=== PATIENT | female | born 1965 | race Hispanic/Latino ===

== ENCOUNTER 2018-06-07 12:11 | Outpatient (CLI) | payer BC | END 2018-06-07 12:12 | disposition home or self-care (01) | LOC: BICMAMMO 12:11 | PROVIDERS: ATTEND Obstetrics & Gynecology | DX: Z12.31 Encounter for screening mammogram for malignant neoplasm of breast (principal); Z80.3 Family history of malignant neoplasm of breast | CPT/HCPCS: 77063; 77067 ==

== ENCOUNTER 2019-11-21 10:08 | Outpatient (CLI) | payer BC ==
--- NOTE | 2019-11-21 11:59 | ULT ---
PELVIC SONOGRAM TRANSABDOMINAL AND TRANSVAGINAL IMAGING WITH DUPLEX EVALUATION: HISTORY: Postmenopausal bleeding. FINDINGS: The urinary bladder is unremarkable. Uterus has a heterogeneous echotexture and measures up to 7.5 c m. A lobular 0.9 cm echogenicity along the anterior aspect of the lower uterine segment likely repre sents a partially calcified uterine fibroid. Endometrium is 0.6 cm. NO free fluid. Each ovary has a normal appearance with good color and spectral Doppler flow. IMPRESSION: Mild fibroid involvement of the uterus. POS: [facility]
== END 2019-11-21 10:09 | disposition home or self-care (01) ==
LOC: SCSULT 10:08
PROVIDERS: ATTEND Family Medicine
DX: N95.0 Postmenopausal bleeding (principal); D25.9 Leiomyoma of uterus, unspecified
CPT/HCPCS: 76856

== ENCOUNTER 2020-10-31 08:00 | Outpatient (CLI) | payer BC ==
--- NOTE | 2020-10-31 11:22 | BD ---
BONE DENSITOMETRY USING DEXA: HISTORY: Postmenopausal screening for osteoporosis. FINDINGS: Lumbar Spine: BMD (g/cm2) L1 0.706 T-Score: -2.6 Z-Score: 1.7 L2 0.732 T-Score: -2.7 Z-Score: -1.8 L3 0.778 T-Score: -2.8 Z-Score: -1.8 L4 0.793 T-Score: -2.4 Z-Score: -1.4 L1-L4 0.756 T-Score: -2.6 Z-Score: -1.7 Femoral Neck: 0.582 T-Score: -2.4 Z-Score: -1.5 Total Femur: 0.758 T-Score: -1.5 Z-Score: -0.9 Impression: Osteoporosis. POS: AH
== END 2020-10-31 08:01 | disposition home or self-care (01) ==
LOC: BICMAMMO 08:00
PROVIDERS: ATTEND Internal Medicine Endocrinology, Diabetes & Metabolism
DX: Z13.820 Encounter for screening for osteoporosis (principal); M81.0 Age-related osteoporosis without current pathological fracture; M85.859 Other specified disorders of bone density and structure, unspecified thigh
CPT/HCPCS: 77080

== ENCOUNTER 2021-01-11 13:31 | Outpatient (CLI) | payer BC | END 2021-01-11 13:32 | disposition home or self-care (01) | LOC: BICRAD 13:31 | PROVIDERS: ATTEND Internal Medicine Rheumatology | DX: M25.551 Pain in right hip (principal); M16.0 Bilateral primary osteoarthritis of hip | CPT/HCPCS: 72170; 73522 ==